=== PATIENT | female | born 1980 | race American Indian/Alaskan Native ===

== ENCOUNTER 2016-08-10 15:37 | Emergency (ER) | payer OTHER ==
--- NOTE | 2016-08-10 18:13 | Emergency Department Report ---
Chief Complaint: Chest Pain Stated Complaint: CP/NUMBNESS Time Seen by Provider: 08/10/16 18:12 - HPI History of Present Illness: WENT TO WORK AND WAS DOING HER WORK WHEN R HAND WENT NUMB ON MENSES PMH NONE RX NONE MOM W HER STATES HX PANIC ATTACKS VSS NAD 12 LEAD NAP - Exam Vital Signs: Vital Signs 08/10/16 18:08 Temperature 98.5 F Pulse Rate 75 Respiratory 16 Rate Blood Pressure 118/75 O2 Sat by Pulse 100 Oximetry MSE screening note: Focused history and physical exam performed. Due to findings the following was ordered: ED Disposition for MSE Condition: Stable Referrals: PRIMARY CARE, [Primary Care Provider] - 3-5 Days
[2016-08-10 18:45] LABS: Basophils % (Auto) 0.8 % (0.0-1.8); Eosinophils % (Auto) 2.6 % (0.0-4.3); Hemoglobin 13.6 gm/dl (10.1-14.3); Mean Corpuscular HGB Conc 32 % (30-34); Mean Corpuscular Hemoglobin 26 pg (28-32); Mean Corpuscular Volume 82 fl (79-97); Platelet Count 365 K/mm3 (140-440); Red Blood Count 5.16 M/mm3 (3.65-5.03); Red Cell Distribution Width 13.5 % (13.2-15.2); White Blood Count 8.7 K/mm3 (4.5-11.0)
[2016-08-10 19:06] LABS: Anion Gap 18 mmol/L; BUN/Creatinine Ratio 12.85; Blood Urea Nitrogen 9 mg/dL (7-17); Calcium 9.2 mg/dL (8.4-10.2); Carbon Dioxide 24 mmol/L (22-30); Chloride 103.3 mmol/L (98-107); Glucose 90 mg/dL (65-100); Potassium 4.2 mmol/L (3.6-5.0); Sodium 141 mmol/L (137-145)
--- NOTE | 2016-08-11 02:37 | Emergency Department Report ---
ED Chest Pain HPI - General Chief Complaint: Chest Pain Stated Complaint: CP/NUMBNESS Time Seen by Provider: 08/11/16 02:21 Source: patient Mode of arrival: Ambulatory Limitations: No Limitations - History of Present Illness Initial Comments: Patient is a 36-year-old female with no past medical history presenting with intermittent in chest pain. Patient reports she was sitting at work at 2 PM yesterday when she got a sharp pain in her chest with associated right arm paresthesias and leg pain. Patient reports everything has resolved except for the left leg pain. No prior episodes. Otherwise no fevers, chills, DARNELL, NVD, SOB , cough, hemoptysis, CP, DVT or PE history, abd pain, trauma, travel, h/o malignancy, hormone therapy,or sick contacts MD Complaint: chest pain, other (paresthesias) -: Sudden Pain Location: substernal Severity: moderate Severity scale (0 -10): 6 Quality: sharp Consistency: constant, now resolved Improves With: nothing Worsens With: nothing - Related Data On Oral Contraceptives: No Home Medications Medication Instructions Recorded Confirmed Last Taken No Known Home Medications [No 08/11/16 08/11/16 Unknown Reported Home Medications] Allergies Allergy/AdvReac Type Severity Reaction Status Date / Time No Known Allergies Allergy Unverified 08/10/16 18:07 LORETA score - Loreta Score Age > 65: (0) No Aspirin use within the Past 7 Days: (0) No 3 or more CAD Risk Factors: (0) No 2 or more Angina events in past 24 hrs: (0) No Known CAD with more than 50% Stenosis: (0) No Elevated Cardiac Markers: (0) No ST Deviation Greater than 0.5mm: (0) No LORETA Score: 0 ED Review of Systems ROS: Stated complaint: CP/NUMBNESS Other details as noted in HPI Comment: All other systems reviewed and negative ED Past Medical Hx - Past Medical History Previous Medical History?: No - Medications Home Medications: Home Medications Medication Instructions Recorded Confirmed Last Taken Type No Known Home Medications [No 08/11/16 08/11/16 Unknown History Reported Home Medications] ED Physical Exam - General Limitations: No Limitations General appearance: alert, in no apparent distress - Head Head exam: Present: atraumatic, normocephalic - Eye Eye exam: Present: normal appearance - ENT ENT exam: Present: mucous membranes moist - Neck Neck exam: Present: normal inspection - Respiratory Respiratory exam: Present: normal lung sounds bilaterally. Absent: respiratory distress - Cardiovascular Cardiovascular Exam: Present: regular rate, normal rhythm. Absent: systolic murmur, diastolic murmur, rubs, gallop - GI/Abdominal GI/Abdominal exam: Present: soft, normal bowel sounds - Extremities Exam Extremities exam: Present: normal inspection - Back Exam Back exam: Present: normal inspection - Neurological Exam Neurological exam: Present: alert, oriented X3, CN II-XII intact, normal gait, reflexes normal, other ((-)cerebellar signs (-)Romberg). Absent: motor sensory deficit - Psychiatric Psychiatric exam: Present: normal affect, normal mood - Skin Skin exam: Present: warm, dry, intact, normal color. Absent: rash ED Course Vital Signs 08/10/16 08/11/16 08/11/16 18:08 01:12 02:40 Temperature 98.5 F 98.6 F 98.4 F Pulse Rate 75 79 89 Respiratory 16 18 20 Rate Blood Pressure 118/75 124/62 Blood Pressure 120/78 [Right] O2 Sat by Pulse 100 100 100 Oximetry 08/11/16 08/11/16 08/11/16 02:41 02:51 03:12 Temperature 98.6 F Pulse Rate 81 Respiratory 20 20 20 Rate Blood Pressure Blood Pressure 118/69 [Right] O2 Sat by Pulse 100 100 Oximetry ED Medical Decision Making - Lab Data Result diagrams: 08/10/16 18:21 08/10/16 18:21 - EKG Data -: EKG Interpreted by Me (18:00) EKG shows normal: sinus rhythm, axis (normal), intervals (QTc:417ms), ST-T waves ((-)ST T changes, no STEMI) Rate: normal (75 bpm) Critical care attestation.: If time is entered above; I have spent that time in minutes in the direct care of this critically ill patient, excluding procedure time. ED Disposition Clinical Impression: Chest pain, Paresthesia and pain of extremity Disposition: DISCHARGED TO HOME OR SELFCARE Is pt being admited?: No Condition: Stable Instructions: Chest Pain (ED), Paresthesia (ED) Additional Instructions: Return to the ED if your chest pain returns otherwise please follow up with your PMD Referrals: PRIMARY CARE,MD [Primary Care Provider] - 3-5 Days
[2016-08-11 02:52] VITALS: BP 118/69
[2016-08-11 03:03] LABS: Bilirubin,Urine NEG (Negative); Blood,Urine LG (Negative); Ketones,Urine TR mg/dL (Negative); Leukocyte Esterase,Urine TR (Negative); Mucus,Urine 3+ /HPF; Nitrite,Urine NEG (Negative); Urobilinogen,Urine < 2.0 mg/dL (<2.0)
[2016-08-11] MEDS: MOTRIN PO ONE (03:12)
--- NOTE | 2016-08-11 08:45 | XRay Report ---
ROUTINE CHEST, TWO VIEWS: HISTORY: Shortness of breath. The trachea, heart, mediastinal contour, lung estrella and bony thorax are unremarkable. IMPRESSION: Unremarkable chest x-ray.
== END 2016-08-11 04:28 | disposition home or self-care (01) ==
LOC: ED 15:37
DX: R07.9 Chest pain, unspecified (principal); R20.9 Unspecified disturbances of skin sensation; M79.604 Pain in right leg
CPT/HCPCS: 36415; 71020; 80048; 81001; 84443; 84484; 84703; 85025; 85379; 93005; 93010